=== PATIENT | male | born 1965 | race Caucasian/White ===

== ENCOUNTER 2017-01-29 09:24 | Emergency (ER) | payer OTHER ==
[~2017-01-29] VITALS: Ht 185.4 cm; Wt 93.1 kg
[~2017-01-29 09:24] MED LIST: Flexeril PO; NEXIUM20 MG PO; Percocet 7.5/325,End PO; Voltaren PO; oxyCODONE PO
[2017-01-29] MEDS ORDERED: PERCOCET 5/31 TABLET PO (11:48)
[2017-01-29 11:50] VITALS: BP 126/86
== END 2017-01-29 12:01 | disposition home or self-care (01) ==
LOC: EME 09:24
DX: S80.02XA Contusion of left knee, initial encounter (principal); S93.402A Sprain of unspecified ligament of left ankle, initial encounter; M17.9 Osteoarthritis of knee, unspecified; W19.XXXA Unspecified fall, initial encounter; Z87.442 Personal history of urinary calculi; Z98.1 Arthrodesis status; Z85.828 Personal history of other malignant neoplasm of skin; F17.200 Nicotine dependence, unspecified, uncomplicated; Z88.5 Allergy status to narcotic agent; G89.29 Other chronic pain
CPT/HCPCS: 73564; 73610; 99281; 99285

== ENCOUNTER 2017-04-10 23:11 | Observation (INO) | payer OTHER ==
[~2017-04-10] VITALS: Ht 185.4 cm; Wt 100.1 kg
[~2017-04-10 23:11] MED LIST changes: +PERCOCET 5/31 TABLET PO
[2017-04-10 23:42] LABS: POINT-OF-CARE METER ID UU13113702
[2017-04-10 23:49] LABS: CREATININE 1.1 mg/dL (0.6-1.3); POTASSIUM 4.1 mEq/L (3.7-5.4)
[2017-04-11 00:12] LABS: TROP-I INTERPRETATION NEGATIVE; TROPONIN-I < 0.01 ng/mL (0.0-0.30)
[2017-04-11 00:45] LABS: HEMATOCRIT 44.9 % (38.0-50.0); MEAN PLAT.VOLUME 9.7 uM^3 (9.0-12.4); NRBC (%) 0.7 /100 WBC (0-0); PLATELET COUNT 275 K/uL (156-360); RBC DIS.WIDTH-CV 13.2 % (11.8-14.6); RBC DIS.WIDTH-SD 42.4 % (39-53); WHITE BLOOD COUNT 5.6 K/uL (4.1-10.2)
[2017-04-11 01:04] LABS: ANION GAP 19 MEQ/L (2-14); CHLORIDE 100 MEQ/L (99-109); GFR ESTIMATE (CALCULATED) > 59 mL/min/; GLUCOSE 110 mg/dL (70-99); POTASSIUM 4.9 MEQ/L (3.7-5.4); SAMPLE HEMOLYSIS CHECK 3; SAMPLE ICTERIC CHECK 0; SAMPLE LIPEMIA CHECK 1; SODIUM 138 MEQ/L (136-147); UREA NITROGEN (BUN) 15 mg/dL (9-23)
[2017-04-11] MEDS ORDERED: VOLTAREN75 MG PO (01:34)
[2017-04-11] MEDS ORDERED: COPAXONE40 MG/1 ML SC (01:36)
[2017-04-11] MEDS ORDERED: OXYCODONE HCL5 MG PO (01:36)
[2017-04-11] MEDS ORDERED: ATORVASTATIN CA20 MG PO (01:36)
[2017-04-11] MEDS ORDERED: LYRICA100 MG PO (01:36)
[2017-04-11] MEDS ORDERED: SENNA PLUS TAB1 EACH PO (01:36)
[2017-04-11] MEDS ORDERED: TYLENOL EXTRA500 MG PO (01:36)
[2017-04-11] MEDS ORDERED: CELEBREX200 MG PO (01:37)
[2017-04-11] MEDS ORDERED: LITE COAT ASPI325 M1 PO (01:37)
[2017-04-11] MEDS ORDERED: DEXILANT30 MG PO (01:37)
[2017-04-11 01:50] LABS: INTER. NORMALIZED RATIO 1.1; PROTHROMBIN TIME 11.1 (9.2-11.2); PTT 22.7 (25-32)
[2017-04-11 05:15] VITALS: BP 113/63
[2017-04-11 05:35] LABS: TROP-I INTERPRETATION NEGATIVE; TROPONIN-I 0.02 ng/mL (0.0-0.30)
[2017-04-11 09:25] VITALS: BP 92/56
[2017-04-11 12:00] VITALS: BP 102/66
[2017-04-11 13:36] LABS: TROP-I INTERPRETATION NEGATIVE; TROPONIN-I < 0.01 ng/mL (0.0-0.30)
[2017-04-11] MEDS ORDERED: AZITHROMYCIN500 M1 PO (15:31)
[2017-04-11] MEDS ORDERED: PREDNISONE20 MG PO (15:32)
[2017-04-11] MEDS ORDERED: COMBIVENT RESPIM4 GM IH (15:33)
== END 2017-04-11 16:18 | disposition home or self-care (01) ==
LOC: EME 23:11 → EDOF 04-11 02:05 → 4EAST 04-11 05:11
PROVIDERS: Emergency Medicine; Hospitalist; Internal Medicine Cardiovascular Disease
DX: R07.9 Chest pain, unspecified (principal); I95.9 Hypotension, unspecified; G35 Multiple sclerosis; Z86.73 Personal history of transient ischemic attack (TIA), and cerebral infarction without residual deficits; R09.02 Hypoxemia; K21.9 Gastro-esophageal reflux disease without esophagitis; Q21.1 Atrial septal defect; E78.5 Hyperlipidemia, unspecified; Z82.49 Family history of ischemic heart disease and other diseases of the circulatory system; R19.7 Diarrhea, unspecified; R11.2 Nausea with vomiting, unspecified; R06.02 Shortness of breath; F17.210 Nicotine dependence, cigarettes, uncomplicated; Z88.5 Allergy status to narcotic agent; Z88.8 Allergy status to other drugs, medicaments and biological substances; Z79.82 Long term (current) use of aspirin; Z96.652 Presence of left artificial knee joint; Z98.1 Arthrodesis status
CPT/HCPCS: 71275; 80047; 80048; 82948; 83605; 84484; 85027; 85610; 85730; 87040; 93005; 93306; 93971; 94640; 94640 76; 99202; 99281; 99285; G0378; J1644; J2270; J2997; J7030

== ENCOUNTER 2017-05-18 01:37 | Emergency (ER) | payer OTHER ==
[~2017-05-18] VITALS: Ht 185.4 cm; Wt 96.8 kg
[~2017-05-18 01:37] MED LIST changes: +ATORVASTATIN CA20 MG PO; +AZITHROMYCIN500 M1 PO; +CELEBREX200 MG PO; +COMBIVENT RESPIM4 GM IH; +COPAXONE40 MG/1 ML SC; +DEXILANT30 MG PO; +LITE COAT ASPI325 M1 PO; +LYRICA100 MG PO; +OXYCODONE HCL5 MG PO; +PREDNISONE20 MG PO; +SENNA PLUS TAB1 EACH PO; +TYLENOL EXTRA500 MG PO; +VOLTAREN75 MG PO
[2017-05-18 02:16] LABS: HEMATOCRIT 49.5 % (38.0-50.0); MCH 28.7 PG (29.0-34.0); MCHC 33.7 G/DL (30.0-36.0); MCV 85.1 FL (86-99); MEAN PLAT.VOLUME 9.9 uM^3 (9.0-12.4); PLATELET COUNT 185 K/uL (156-360); RBC DIS.WIDTH-CV 13.1 % (11.8-14.6); RBC DIS.WIDTH-SD 40.1 % (39-53); RED BLOOD COUNT 5.82 M/uL (4.00-5.50); WHITE BLOOD COUNT 3.3 K/uL (4.1-10.2)
[2017-05-18 02:27] LABS: CHLORIDE 109 mEq/L (99-109); POTASSIUM 3.8 mEq/L (3.7-5.4); SODIUM 139 mEq/L (136-147)
[2017-05-18 02:29] LABS: GLUCOSE 131 mg/dL (70-99)
[2017-05-18 02:30] LABS: ANION GAP 11 MEQ/L (2-14)
[2017-05-18 02:33] LABS: GFR ESTIMATE (CALCULATED) > 59 mL/min/
[2017-05-18 02:34] LABS: UREA NITROGEN (BUN) 16 mg/dL (9-23)
[2017-05-18 02:39] LABS: TROP-I INTERPRETATION NEGATIVE; TROPONIN-I < 0.01 ng/mL (0.0-0.30)
[2017-05-18 04:04] LABS: TROP-I INTERPRETATION NEGATIVE; TROPONIN-I < 0.01 ng/mL (0.0-0.30)
[2017-05-18 04:31] VITALS: BP 123/79
== END 2017-05-18 04:32 | disposition home or self-care (01) ==
LOC: EME 01:37
PROVIDERS: Emergency Medicine
DX: R07.89 Other chest pain (principal); R53.81 Other malaise; R06.00 Dyspnea, unspecified; Z79.82 Long term (current) use of aspirin; Z85.828 Personal history of other malignant neoplasm of skin; F17.200 Nicotine dependence, unspecified, uncomplicated
CPT/HCPCS: 71020; 80048; 84484; 85027; 93005; 99281; 99284